=== PATIENT | female | born 1980 | race Caucasian/White ===

== ENCOUNTER 2022-06-14 20:42 | Emergency (ER) | payer BC, OTHER ==
[2022-06-14 21:09] VITALS: BP 127/81; PULSE 78; RESP 16; TEMP 98.1; BMI 19.5
[2022-06-14] MEDS ORDERED: DIPHTH,PERTUSS(ACELL),TET 0.5 ML DISP.SYRIN IM ONE (22:18)
== END 2022-06-14 22:59 | disposition home or self-care (01) ==
LOC: JER 20:42
PROC: 0HQ1XZZ Repair Face Skin, External Approach (ICD-10-PCS; principal; 2022-06-14)
DX: S01.112A Laceration without foreign body of left eyelid and periocular area, initial encounter (principal); W01.0XXA Fall on same level from slipping, tripping and stumbling without subsequent striking against object, initial encounter
CPT/HCPCS: 99282-25